=== PATIENT | female | born 1995 | race Caucasian/White ===

== ENCOUNTER 2021-07-06 16:49 | Inpatient (IN) | payer OTHER ==
[2021-07-06 18:08] VITALS: BMI 30.5
[2021-07-06] MEDS ORDERED: Misoprostol 200 MCG TAB PR PRN (18:30)
[2021-07-06] MEDS ORDERED: Lidocaine 1% (PF) 30 ML VIAL SC PRN (18:30)
[2021-07-06] MEDS ORDERED: Diphenoxylate HCl/Atropine Tablet PO PRN (18:30)
[2021-07-06] MEDS ORDERED: Methylergonovine 0.2 MG/ML VIAL IM PRN (18:30)
[2021-07-06] MEDS ORDERED: NS w/ Oxytocin 30 units 500 ML IV SCH (18:30)
[2021-07-06] MEDS ORDERED: Ondansetron PF 4 MG/2 ML Vial IVP PRN ×3 (18:30→19:24)
[2021-07-06] MEDS ORDERED: Promethazine HCl 25 MG/ML VIAL IM PRN ×2 (18:30→19:02)
[2021-07-06] MEDS ORDERED: Butorphanol Tartrate 1 MG/ML VIAL SLOW IVP PRN (18:30)
[2021-07-06] MEDS ORDERED: hydrALAZINE 20 MG/ML VIAL SLOW IVP PRN ×2 (18:30→19:24)
[2021-07-06] MEDS ORDERED: Carboprost 250 MCG/ML AMP IM PRN (18:30)
[2021-07-06] MEDS ORDERED: Lactated Ringer's 1,000 ML IV SCH (18:30)
[2021-07-06 18:43] LABS: Hemoglobin 12.2 g/dL (12.0-15.5); Mean Corpuscular HGB CONC 34.7 g/dL (32.0-36.0); Mean Corpuscular Hemoglobin 31.3 pg (27.0-33.0); Mean Corpuscular Volume 90.3 fl (81.6-98.3); Mean Platelet Volume 10.3 fl (7.4-10.4); Platelet Count 263 10x3/uL (150-450); RBC Distribution Width 14.1 % (11.5-14.5)
[2021-07-06] MEDS ORDERED: Fentanyl 100 MCG/2 ML VIAL EPIDURAL PRN (19:02)
[2021-07-06] MEDS ORDERED: Moisturizing Cream (Eucerin) 113 GM JAR TOP PRN (19:02)
[2021-07-06] MEDS ORDERED: Lactated Ringer's 500 ML IV PRN (19:02)
[2021-07-06] MEDS ORDERED: diphenhydrAMINE 50 MG/ML VIAL IVP PRN (19:02)
[2021-07-06] MEDS ORDERED: Fentanyl 2 mcg/Bup 0.1% Cadd 100 ML ONE (19:02)
[2021-07-06] MEDS ORDERED: Naloxone HCl 0.4 mg/ml Vial IVP PRN ×2 (19:02)
[2021-07-06] MEDS ORDERED: Acetaminophen 325 MG TAB PO PRN (19:02)
[2021-07-06] MEDS ORDERED: ePHEDrine Sulfate 50 MG/10 ML VIAL SLOW IVP PRN (19:02)
[2021-07-06 19:09] LABS: Syphilis Antibody Nonreactive (Nonreactive); Syphilis Antibody Index 0.04 S/CO (<1.00 Non-Reactive)
[2021-07-06 19:10] LABS: Hep B Surf Ag Non-Reactive S/CO (NonReactive)
[2021-07-06 19:11] LABS: HBSAg Index 0.16 S/CO (0-0.99)
[2021-07-06] MEDS ORDERED: Fentanyl 100 MCG/2 ML VIAL ONE (19:12)
[2021-07-06] MEDS ORDERED: Communication Order-Pharmacy FS SCH (19:15)
[2021-07-06] MEDS ORDERED: Fentanyl 2 mcg/Bupivacaine 0.1% Cassette 100 ML EPIDURAL SCH (19:15)
[2021-07-06] MEDS ORDERED: Bisacodyl 10 MG SUPP PR PRN (19:24)
[2021-07-06] MEDS ORDERED: Milk Of Magnesia 30 ML UDCUP PO PRN (19:24)
[2021-07-06] MEDS ORDERED: Boostrix 0.5 ML (Tdap) VIAL IM ONE (19:24)
[2021-07-06] MEDS: NS w/ Oxytocin 30 units 500 ML IV SCH ×2 (20:26→20:27)
[2021-07-06] MEDS: Ibuprofen 800 MG TAB PO SCH (22:21)
[2021-07-06] MEDS: Docusate 100 MG CAP PO SCH (22:21)
[2021-07-07 04:49] LABS: #Eosinphils 0.1 10x3/uL (0.0-0.5); #Monocytes 1.1 10x3/uL (0.0-1.1); #Neutrophils 8.3 10x3/uL (1.5-8.4); %Basophils 0.2 % (0.0-2.0); %Eosinophils 1.1 % (0.0-6.0); %Lymphocytes 17.5 % (18.0-47.0); %Monocytes 9.1 % (0.0-10.0); %Neutrophils 71.8 % (40.0-75.0); Mean Corpuscular Volume 91.3 fl (81.6-98.3); Mean Platelet Volume 10.2 fl (7.4-10.4); Platelet Count 234 10x3/uL (150-450); RBC Distribution Width 13.8 % (11.5-14.5); Red Blood Cell (RBC) Count 3.55 10x6/uL (3.90-5.03); White Blood Cell (WBC) Count 11.5 10x3/uL (3.5-10.5)
[2021-07-07] MEDS: Ibuprofen 800 MG TAB PO SCH ×3 (05:54→22:18)
[2021-07-07] MEDS: Ferrous Sulfate 325 MG TAB PO SCH ×2 (08:20→17:13)
[2021-07-07] MEDS: Docusate 100 MG CAP PO SCH ×2 (08:21→22:18)
[2021-07-07 20:51] VITALS: BP 120/76; TEMP 97.5
== END 2021-07-07 21:44 | disposition home or self-care (01) | DRG 807 ==
LOC: CSHLD 16:49 → CSHPP 07-07 00:05
PROVIDERS: ADMIT Obstetrics & Gynecology; ATTEND Obstetrics & Gynecology
PROC: 10E0XZZ Delivery of Products of Conception, External Approach (ICD-10-PCS; principal; 2021-07-06)
DX: O80 Encounter for full-term uncomplicated delivery (principal); Z37.0 Single live birth; Z3A.38 38 weeks gestation of pregnancy
CPT/HCPCS: 36415; 85025; 85027; 86780; 86850; 86900; 86901; 87340; J2590